=== PATIENT | male | born 1970 | race Caucasian/White ===

== ENCOUNTER → 2020-05-03 10:40 | Outpatient (CLI) | payer OTHER, SELFPAY ==
[2020-05-03 12:07] LABS: Alanine Aminotransferase 23 IU/L (<50); Aspartate Aminotransferase 25 IU/L (17-59); Blood Urea Nitrogen 17 mg/dL (9-20); Estimated Glomerular Filt Rate > 60.0 mL/min (>60)
== END ==
PROVIDERS: PCP Family Medicine; Referring Provider Physician Assistant Medical; Visit Provider Physician Assistant Medical
DX: Z79.899 Other long term (current) drug therapy (principal)
CPT/HCPCS: 36415; 82565; 84450; 84460; 84520

== ENCOUNTER → 2021-07-17 08:35 | Outpatient (CLI) | payer OTHER, SELFPAY ==
[2021-07-17 10:12] LABS: Add Manual Diff / Slide Review NO; Basophils Absolute Auto 100 /uL (0-100); Eosinophils Absolute Auto 200 /uL (0-450); Eosinophils Percent Auto 3.8 % (2-4); Hemoglobin 13.9 g/dL (13.5-17.5); Lymphocytes Absolute Auto 1700 /uL (1100-4500); Lymphocytes Percent Auto 31.2 % (25-40); Mean Corpuscular HGB Conc 33.9 % (30-36); Mean Corpuscular Hemoglobin 31.4 PG (26-34); Mean Corpuscular Volume 92.5 fL (80-100); Monocytes Absolute Auto 400 /uL (0-900); Monocytes Percent Auto 8.2 % (3-14); Neutrophils Absolute Auto 3000 /uL (1500-7000); Neutrophils Percent Auto 55.8 % (50-75); Platelet Count 240 X10^3/uL (150-400); Red Blood Cell Count 4.43 X10^6/uL (4.5-5.9); White Blood Cell Count 5.3 X10^3/uL (4.5-11.0)
[2021-07-17 11:06] LABS: Alanine Aminotransferase 56 IU/L (<50); Albumin 4.2 g/dL (3.5-5.0); Albumin Globulin Ratio 1.5 (1.0-2.8); Alkaline Phosphatase 63 U/L (38-126); Aspartate Aminotransferase 35 IU/L (17-59); BUN Creatinine Ratio 20.3 (6-22); Bilirubin Total 1.6 mg/dL (0.2-1.3); Blood Urea Nitrogen 16 mg/dL (9-20); Calcium 9.4 mg/dL (8.4-10.2); Carbon Dioxide 32 mmol/L (22-32); Chloride 103 mmol/L (98-107); Cholesterol 190 mg/dL (140-199); Estimated Glomerular Filt Rate > 60.0 mL/min (>60); Globulin 2.8 g/dL (1.7-4.1); Glucose 99 mg/dL (70-100); HDL Cholesterol 90 mg/dL (40-60); HEMOLYSIS < 15 (0-50); LDL Cholesterol Calculated 87 mg/dL (<100); Potassium 3.9 mmol/L (3.4-5.1); Sodium 140 mmol/L (137-145); Triglycerides 65 mg/dL (35-150)
== END ==
PROVIDERS: PCP Family Medicine; Referring Provider Family Medicine; Visit Provider Family Medicine
DX: E78.49 Other hyperlipidemia (principal); E80.6 Other disorders of bilirubin metabolism; L30.8 Other specified dermatitis
CPT/HCPCS: 36415; 80053; 80061; 82248; 85025

== ENCOUNTER → 2021-07-21 09:18 | Outpatient (CLI) | payer OTHER, SELFPAY ==
[2021-07-21 12:05] LABS: COVID19 -Nasal RAPID Negative (Negative)
== END ==
PROVIDERS: PCP Family Medicine; Visit Provider Surgery
DX: Z01.812 Encounter for preprocedural laboratory examination; Z20.822 Contact with and (suspected) exposure to COVID-19
CPT/HCPCS: 87635; C9803

== ENCOUNTER 2021-07-24 09:15 | Day surgery (SDC) | payer OTHER, SELFPAY ==
[2021-07-24 10:01] VITALS: BMI 27.6
[2021-07-24 10:08] VITALS: BP 127/83; PULSE 80; RESP 14; TEMP 36.6
[2021-07-24] MEDS: LACTATED RINGERS 1,000 ML 200 ML IV (10:10)
--- NOTE | 2021-07-24 10:38 | PM.HP.1 ---
History of Present Illness History of Present Illness Date Patient Seen: 07/24/21 Time Patient Seen: 10:38 Chief complaint: SDC Narrative: The patient presents for colorectal sreening. They have never had any previous examination for such. No personal or family history of colon cancer. On further history denies any recent gastrointestinal symptoms. No nausea, vomiting, abdominal pain, loss of appetite, unexplained weight loss, change in bowel habits, diarrhea, constipation, melena, hematochezia, or bright red blood per rectum. Patient History Medical History (Updated 06/21/21 @ 22:27 by Jeanine Fajardo) Skin rash Surgical History (Updated 06/21/21 @ 22:27 by Jeanine Fajardo) Anesthesia History of knee surgery (~2010) Family & Social History Family History (Updated 06/21/21 @ 22:29 by Jeanine Fajardo) Father Age: 80 Heart disease Parkinson's disease Mother Age: 78 Healthy female adult Grandfather Cancer Grandmother COPD (chronic obstructive pulmonary disease) Social History: household members spouse Tobacco & Substance use: Smoking Status Never smoker alcohol intake frequency 0-2 drinks per day Substance Use Type does not use Meds Home Medications and Allergies Allergies Allergy/AdvReac Type Severity Reaction Status Date / Time No Known Drug Allergies Allergy Verified 07/24/21 09:59 Exam Vital Signs (past 8 hours): - 07/24/21 10:08 Temperature 98 F Pulse Rate 80 Respiratory Rate 14 Blood Pressure 127/83 Oxygen Delivery Method Room Air Oxygen Flow Rate 95 Narrative Exam Narrative: Constitutional-he is oriented to person, place and time. No apparent distress Cardiovascular- regular rate, no peripheral edema Pulmonary-unlabored respiratory effort, no audible wheezing Abdominal-soft, non-tender, non-distended Assessment & Plan Assessment & Plan narrative: The patient requires colorectal screening and colonoscopy is recommended. Technical details were discussed. Risks, benefits, alternatives explained. Risks including but not limited to myocardial infarction, aspiration, bleeding, pain, missed lesion, incomplete examination, need for further radiographic studies, colonic perforation, and need for major abdominal surgery were discussed. All questions were answered to their satisfaction, and they are in agreement with this plan. Time Spent With Patient Critical Care time: I spent a total of [] minutes of critical care time on this patient's care today; this time is exclusive of procedural time.
[2021-07-24] MEDS: MIDAZOLAM 5 MG/5 ML VIAL IV (10:44)
[2021-07-24] MEDS: fentaNYL 250 MCG/5 ML INJ IV (10:51)
--- NOTE | 2021-07-24 11:00 | PM.OP.COLON ---
Operative Date/Time/Diagnoses Date of procedure: 07/24/21 Time of procedure: 11:00 Pre-op diagnosis: Screening colonoscopy Post-op diagnosis: same Procedure & Clinicians Study performed: Colonoscopy Same procedure as scheduled: Yes Indications: Screening colonoscopy Surgeon: Jameson Monsivais Procedure Notes Procedure in detail: Medications: Conscious sedation using 5mg IV midazolam and 250 mcg IV of fentanyl The history and physical was performed/updated and the patient is ASA class is 1. The procedure was discussed in detail with the patient. Potential risks complications including infection, bleeding, missed diagnosis, perforation, need for surgery, and were explained. Their questions were answered and informed consent was obtained. Patient was brought to the procedure room and placed standard monitoring equipment. The patient's vital signs were monitored continuously throughout the entire procedure. Prior to starting time-out was performed. The patient was placed in the left lateral recumbent position. Procedural sedation was administered. Examination began with a thorough inspection of the perianal area there was no evidence of fissures, fistulae, external hemorrhoids or cutaneous malignancy. The colonoscopy scope was then placed into the anal canal and was advanced to the cecum, which was identified by the ileocecal valve, the appendiceal orifice and the confluence of the taenia. The scope was then slowly withdrawn examining colon thoroughly in all directions, irrigating it of any residual stool. FINDINGS 1. No masses or polyps 2. Normal healthy appearing colon The patient tolerated the procedure well. They will be discharged once criteria are met. The prep was of good/excellent quality. The withdrawl time was 6 minutes. The sedation time was 18 minutes. Specimen(s): none sent Complications: none Impression: Normal colonoscopy Post-procedure Recommendations: Colonoscopy in 10 years Disposition: same day surgery
[2021-07-24 11:01] VITALS: BP 126/86; PULSE 66; RESP 16; TEMP 36.6; O2SAT 95
[2021-07-24 11:06] VITALS: BP 123/84; PULSE 63; RESP 15; O2SAT 93
[2021-07-24 11:11] VITALS: BP 122/82; PULSE 75; RESP 16; TEMP 37; O2SAT 92
[2021-07-24 11:19] VITALS: BP 115/84; PULSE 77; RESP 16; O2SAT 93
[2021-07-24 11:25] VITALS: BP 118/78; PULSE 79; RESP 14; TEMP 36.5; O2SAT 95
--- NOTE | 2021-07-24 13:14 | SUR.PHASEII ---
07/24/21-11:40 Discharged home at 1140am. Wide awake,alert,oriented x 4. gait steady. dressed self. refused po fluids . denies nausea. abdomen soft. Pt has discharge instructions and all belongings on discharge . To car by wheelchair to 's car/care.
== END 2021-07-24 11:40 | disposition home or self-care (01) ==
PROVIDERS: PCP Family Medicine; Referring Provider Surgery; Visit Provider Surgery
PROC: 0DJD8ZZ Inspection of Lower Intestinal Tract, Via Natural or Artificial Opening Endoscopic (ICD-10-PCS; CPT 45378; principal; 2021-07-24 10:45)
DX: Z12.11 Encounter for screening for malignant neoplasm of colon (principal)
CPT/HCPCS: 45378; 99152; J2250; J3010